=== PATIENT | female | born 2000 | race Caucasian/White ===

== ENCOUNTER 2023-03-20 13:36 | Emergency (ER) | payer MEDICAID, SELFPAY ==
[2023-03-20 13:44] VITALS: BP 118/74; PULSE 107; RESP 18; TEMP 36.6; O2SAT 100; BMI 26.6
--- NOTE | 2023-03-20 14:09 | CRLHL7_ITS ---
For Patients: As a result of the Century Cures Act, medical imaging exams and procedure reports are released immediately into your electronic medical record. You may view this report before your referring provider. If you have questions, please contact your health care provider. INDICATION: Vaginal bleeding in early . TECHNIQUE: Transvaginal pelvic ultrasound examination was performed. Real-time diaz-scale imaging of the pelvis was performed. COMPARISON: None. FINDINGS: Intrauterine gestation: Present. Mean gestational sac diameter of 0.7 cm, compatible with an estimated gestational age of 5 weeks and 3 days. Embryo present: No pole is identified. Embryo cardiac activity: Not applicable. [place] rump Length: Not applicable, no pole is identified. Sonographic gestational age: 5 weeks and 3 days by mean gestational sac diameter. Sonographic estimated due date: 11/17/2023. Yolk sac: No yolk sac. Perigestational hemorrhage: There is subchorionic echogenicity measuring 2.8 x 1.0 x 2.7 cm. Ovaries and adnexae: Unremarkable. Simple appearing left ovarian cyst measuring 2.5 cm. No suspicious lesions or fluid collections. IMPRESSION: Intrauterine gestational sac without evidence of an embryonic pole, however may still be too early to visualize a pole or cardiac activity. These findings are however in association with a large subchorionic hemorrhage, raising concern for threatened miscarriage. Continued obstetric follow-up, serial beta hCG and ultrasound examination is advised. Dictated by Familia Tian MD @ 03/20/2023 3:53:20 PM (Electronically Signed)
[2023-03-20] MEDS: ACETAMINOPHEN 500 MG TABLET 1000 MG PO (14:29)
--- NOTE | 2023-03-20 15:09 | ED.GENADULT ---
HPI - General Adult General Date Seen: 03/20/23 Chief complaint: Vaginal Bleeding Stated complaint: 4 weeks , vaginal bleeding Time Seen by Provider: 03/20/23 13:42 History of Present Illness HPI narrative: This is a 22-year-old female with a past medical history including G8, P2 with 3 previous spontaneous abortions and 2 elective terminations, also history of anxiety, depression, UTIs, trichomoniasis, and in her medical record history of meth use. She presents to ER today with pelvic cramping and vaginal bleeding that began this morning. She believes she is approximately 4 weeks . Dates are a little bit unclear. She estimates that her last menstrual cycle would of been during the of January, perhaps the or . In that case she typically would have ovulated around the or and would be 7 weeks based on that. However she is pretty certain that conception occurred on 02/25. In that case she would be approximately 3 weeks and 2 days out from conception and roughly 5 weeks 2 days gestation (assuming menstruation 2 weeks prior to ovulation). This morning she was at her mother and father's house for gi. She began having bilateral and suprapubic lower cramping. She has had a small gush of bright red blood. She is concerned she is having a miscarriage. She has had several previous miscarriages and she really wants to keep this . No other symptoms leading up to this. No recent injury. No vaginal discharge. No urinary symptoms. No fever chills. No back pain she is not lightheaded. we discussed workup, a she initially agrees to have workup including pelvic ultrasound, labs, pelvic exam. She then changed her mind and only wants to do the ultrasound, no labs and no pelvic exam. Related Data Home Medications Medication Instructions Recorded Confirmed No Known Home Medications 03/20/23 03/20/23 Allergies Allergy/AdvReac Type Severity Reaction Status Date / Time No Known Drug Allergies Allergy Verified 03/20/23 14:29 PFSH PFS Social History Smoking Status: Current every day smoker What tobacco products do you use: cigarettes How often do you have a drink containing alcohol: never AUDIT-C Alcohol total score: 0 Non-prescribed substance use: denies use Exam Narrative: Exam Narrative: Constitutional: Appears well-developed and well-nourished. Alert. Uncomfortable but Conversant. Non toxic. HENT: Head: Atraumatic. Nose: Nose normal. Mouth/Throat: Oral mucosa is clear and moist. no trismus. Pharynx normal. Tonsils symmetric. No tonsillar enlargement, erythema, or exudate. Eyes: Conjunctivae normal. EOM normal. Pupils equal, round, and reactive to light. No scleral icterus. Neck: Normal range of motion. Neck supple. No tracheal deviation present. Cardiovascular: Normal rate, regular rhythm. No gallop. No friction rub. No murmur heard. Symmetric radial artery pulses Pulmonary/Chest: Effort normal. No stridor. No respiratory distress. No wheezes. No rales. No rhonchi . No tenderness. Abdominal: Soft. Bowel sounds normal. No distension. No mass. Suprapubic and bilateral lower quadrant tenderness. No upper tenderness. No CVA tenderness. No rebound. No guarding. Pelvic: Declined by patient Musculoskeletal: RUE: Normal range of motion. No tenderness. No deformity LUE: Normal range of motion. No tenderness. No deformity RLE: Normal range of motion. No edema. No tenderness. No deformity LLE: Normal range of motion. No edema. No tenderness. No deformity Neurological: Alert and oriented to person, place, and time. Normal strength. CN II-VII intact. No sensory deficit. GCS eye subscore is 4. GCS verbal subscore is 5. GCS motor subscore is 6. Normal coordination Skin: Skin is warm and dry. No rash noted. No pallor. Normal capillary refill. Psychiatric: Normal mood. Normal affect, aside from worry which may be appropriate under the circumstances.. Const: Vital Signs, click to edit/add: Vital Signs - 24 hr 03/20/23 13:44 Temperature 97.8 F Pulse Rate [Pulse Oximeter] 107 H Respiratory Rate 18 Blood Pressure [Ri ght Upper Arm] 118/74 Pulse Oximetry 100 Oxygen Delivery Me thod Room Air Course Reevaluation(s) Reevaluation #1: Recheck-hemodynamically stable. Lying in bed. Says her pain is substantially improved but not resolved after Tylenol. Declines further pain meds for now. Discussed ultrasound findings. At this point ultrasound is not clearly diagnostic. There is a yolk sac with a pole but no visible heartbeat. At this point we are not clear and her dates and whether not we would expect actually see a heartbeat. Vital Signs Vital signs: Initial Vital Signs Temperature 97.8 F 03/20/23 13:44 Temperature Source Temporal Artery Scan 03/20/23 13:44 Pulse Rate 107 H 03/20/23 13:44 Respiratory Rate 18 03/20/23 13:44 Blood Pressure 118/74 03/20/23 13:44 Blood Pressure Mean 88 03/20/23 13:44 Pulse Oximetry 100 03/20/23 13:44 Oxygen Delivery Method Room Air 03/20/23 13:44 Vital Signs Temperature 97.8 F 03/20/23 13:44 Pulse Rate 107 H 03/20/23 13:44 Respiratory Rate 18 03/20/23 13:44 Blood Pressure 118/74 03/20/23 13:44 Pulse Oximetry 100 03/20/23 13:44 Oxygen Delivery Method Room Air 03/20/23 13:44 Temperature 97.8 F 03/20/23 13:44 Pulse Rate 107 H 03/20/23 13:44 Respiratory Rate 18 03/20/23 13:44 Blood Pressure 118/74 03/20/23 13:44 Pulse Oximetry 100 03/20/23 13:44 Oxygen Delivery Method Room Air 03/20/23 13:44 Medications Administered Medications: Discontinued Medications Generic Name Dose Route Start Last Admin Trade Name Joshuaq PRN Reason Stop Dose Admin Acetaminophen 1,000 mg 03/20/23 14:09 03/20/23 14:29 Acetaminophen 500 Mg Tablet PO 03/20/23 14:10 1,000 mg ONCE ONE Administration Medical Decision Making MDM Narrative Medical decision making narrative: This female patient presents for evaluation of pelvic cramping and bright red vaginal bleeding that began this morning. I considered a broad differential including ectopic , ovarian cyst, UTI, pyelonephritis, subchorionic hemorrhage, uterine bleeding, active miscarriage, constipation, etc. Non gynecologic causes considered included , appendicitis, cholecystitis, volvulus, intraabdominal abscess, among others. In this patient, there are no signs of serious etiologies of abdominal pain. The workup here suggests threatened miscarriage. There is a subchorionic hemorrhage. Pelvic ultrasound shows a pole but no definite cardiac activity. At this point were not sure about the patient's dates and LMP. If she is indeed 7 weeks this would be highly suggestive for a incomplete . If she is early in the this may simply be an early gestation that does not yet show full pole or cardiac activity. She will need follow-up exam and ultrasound within the next 2-4 days. Her doctors are here in [place] but she lives in [place]. She is not sure she will follow up here or there. I advised her to call her clinic tomorrow to arrange a follow-up appointment. If she is not able to get into the clinic she should come back to the ER for a repeat ultrasound. I recommended lab workup and pelvic exam. The patient is declining pelvic exam and any lab draw. Therefore were not able to assess hCG value for trending purposes, hemoglobin, blood type today. At this point, patient is hemodynamically stable, and bleeding is not predicted to become life threatening. Plan is home, close follow-up with OB, threatened miscarriage precautions, and return to ED for worsening pain, heavy vaginal bleeding (more than 1 pad soaked every hour). Work note provided for light duty. Questions were answered. Imaging Data Pelvic ultrasound: Attestation: I have reviewed the pertinent imaging results. Radiologist's impression: Sonographic estimated due date: 11/17/2023. Yolk sac: No yolk sac. Perigestational hemorrhage: There is subchorionic echogenicity measuring 2.8 x 1.0 x 2.7 cm. Ovaries and adnexae: Unremarkable. Simple appearing left ovarian cyst measuring 2.5 cm. No suspicious lesions or fluid collections. IMPRESSION: Intrauterine gestational sac without evidence of an embryonic pole, however may still be too early to visualize a pole or cardiac activity. These findings are however in association with a large subchorionic hemorrhage, raising concern for threatened miscarriage. Continued obstetric follow-up, serial beta hCG and ultrasound examination is advised. Discharge Plan Discharge Clinical Impression: Threatened , Subchorionic hematoma in first trimester Patient Disposition: Home, Self-Care Condition: Stable Instructions: Threatened Miscarriage (ED) Additional Instructions: Please follow-up with your OB or your regular doctor for repeat ultrasound by Friday. If you have any worsening symptoms such as heavy bleeding, worsening pain, lightheadedness, fever, please return to the ER right away. If you are not able to get in with her doctor for a follow-up ultrasound return to the ER for repeat ultrasound. Use Tylenol if needed for pain. Avoid ibuprofen. Prescriptions: No Action No Known Home Medications Follow Up/Referrals: Rossy Bentley MD [Primary Care Provider] - Stand Alone Forms: [employer]™ Interactive Info Instructions
--- NOTE | 2023-03-20 15:13 | ED.NURSE ---
Patient declines any blood work stating that she does not want any pokes. was notified.
== END 2023-03-20 16:28 | disposition home or self-care (01) ==
PROVIDERS: Emergency Provider Emergency Medicine; PCP Family Medicine
DX: O45.91 Premature separation of placenta, unspecified, first trimester (principal); O20.0 Threatened abortion
CPT/HCPCS: 76817; 76830; 80048; 84702; 85025; 86850; 86900; 86901; 99284; A9270